=== PATIENT | male | born 2005 | race Two or more races ===

== ENCOUNTER 2024-02-18 02:40 | Emergency (ER) | payer MEDICAID, OTHER ==
[~2024-02-18] VITALS: Ht 167.6 cm; Wt 47.0 kg
[2024-02-18 05:00] VITALS: BP 116/75; PULSE 60; RESP 13; TEMP 98.6; O2SAT 97
== END 2024-02-18 05:32 | disposition home or self-care (01) ==
LOC: ER 02:40
DX: S60.031A Contusion of right middle finger without damage to nail, initial encounter (principal); S61.204A Unspecified open wound of right ring finger without damage to nail, initial encounter; X58.XXXA Exposure to other specified factors, initial encounter; Y93.9 Activity, unspecified; Y92.89 Other specified places as the place of occurrence of the external cause; Y99.8 Other external cause status
CPT/HCPCS: 73130